=== PATIENT | male | born 1945 ===

== ENCOUNTER 2020-11-24 07:08 | Outpatient (CLI) | payer MEDICARE, OTHER, SELFPAY ==
--- NOTE | 2020-11-24 07:45 | XRR_ITS ---
PROCEDURE INFORMATION: Exam: XR Abdomen Exam date and time: 11/24/2020 7:45 AM Age: 75 years old Clinical indication: Condition or disease; Kidney or ureter condition; Calculus (stone) in kidney; Patient HX: Kidney stone follow up; Stones in RT kidney; Additional info: Renal calculus TECHNIQUE: Imaging protocol: XR of the abdomen. Views: Frontal supine view of the abdomen. 1 View. COMPARISON: CR XR KUB [id number] 11/20/2018 8:16 AM FINDINGS: Gastrointestinal tract: Normal. No bowel dilation. Organs: 4 mm calculus projects on the superior pole of the left kidney. No other calcifications are seen in the projection of the right kidney or ureters. Bones/joints: Unremarkable. XR/XR KUB [id number] IMPRESSION: 1. Left nephrolithiasis. 2. No acute abnormalities are seen.
== END 2020-11-24 07:09 | disposition home or self-care (01) ==
LOC: RAD 07:17
PROVIDERS: PCP Internal Medicine; Visit Provider Urology
DX: N20.0 Calculus of kidney (principal)
CPT/HCPCS: 74018

== ENCOUNTER → 2022-03-07 08:21 | Outpatient (BNVA) | payer MEDICARE, OTHER, SELFPAY | PROVIDERS: PCP Internal Medicine; Visit Provider Podiatrist Foot & Ankle Surgery | DX: M72.2 Plantar fascial fibromatosis (principal); M24.571 Contracture, right ankle; M25.471 Effusion, right ankle; S86.119A Strain of other muscle(s) and tendon(s) of posterior muscle group at lower leg level, unspecified leg, initial encounter; X58.XXXA Exposure to other specified factors, initial encounter | CPT/HCPCS: 20550; 73630; 99204 ==

== ENCOUNTER → 2022-04-21 10:03 | Outpatient (BNVA) | payer MEDICARE, OTHER, SELFPAY | PROVIDERS: PCP Internal Medicine; Visit Provider Podiatrist Foot & Ankle Surgery | DX: M24.571 Contracture, right ankle (principal); M72.2 Plantar fascial fibromatosis | CPT/HCPCS: 20550 ==

== ENCOUNTER → 2022-05-25 11:04 | Outpatient (BNVA) | payer MEDICARE, OTHER, SELFPAY | PROVIDERS: PCP Internal Medicine; Visit Provider Podiatrist Foot & Ankle Surgery | DX: M72.2 Plantar fascial fibromatosis (principal); M24.571 Contracture, right ankle | CPT/HCPCS: 99213 ==